=== PATIENT | male | born 1940 | race Caucasian/White ===

== ENCOUNTER 2019-02-13 14:55 | Outpatient (RCR) | payer MEDICARE, BC ==
[~2019-02-13 14:55] MED LIST: ASPIRIN 32325 MG/TAB PO; ATIVAN 0.50.5 MG/TAB PO; EPA FISH OIL1000 MG PO; MOTRIN 200200 MG/TAB PO; PLAVIX 75MG TAB75 MG PO; ZETIA 10MG TAB10 MG PO; ZOFRAN 4MG T4 MG/TAB PO
== END 2019-02-19 | disposition home or self-care (01) ==
LOC: COL.CR
DX: Z48.812 Encounter for surgical aftercare following surgery on the circulatory system (principal); I21.9 Acute myocardial infarction, unspecified; Z95.5 Presence of coronary angioplasty implant and graft

== ENCOUNTER 2019-04-21 15:08 | Outpatient (RCR) | payer MEDICARE, BC | END 2019-05-23 | disposition home or self-care (01) | LOC: COL.CR | DX: Z48.812 Encounter for surgical aftercare following surgery on the circulatory system (principal); Z95.5 Presence of coronary angioplasty implant and graft; I25.10 Atherosclerotic heart disease of native coronary artery without angina pectoris ==

== ENCOUNTER 2021-05-11 10:18 | Observation (INO) | payer MEDICARE, BC ==
[~2021-05-11] VITALS: Ht 172.7 cm; Wt 82.5 kg
[2021-05-11 11:09] LABS: BASO % 0.4 % (0.0-2.0); EOS # 0.2 K/mm3 (0.0-0.7); EOS % 2.8 % (0.0-4.0); GRAN # 4.3 K/mm3 (1.4-6.5); GRAN % 59.8 % (42.2-75.2); HEMATOCRIT 44.1 % (42.0-52.0); HEMOGLOBIN 14.4 g/dl (13.5-18.0); LYMPH % 27.8 % (20.0-51.0); MEAN CELL VOLUME 84 fl (80.0-100.0); MEAN CORPUSCULAR HEMOGLOBIN 28 pg (27-31); MEAN CORPUSCULAR HGB CONC 33 g/dl (33.0-37.0); MEAN PLATELET VOLUME 9.2 fl (7.4-10.4); MONO # 0.6 K/mm3 (0.1-0.6); MONO % 8.9 % (1.7-9.3); PLATELET COUNT 231 K/mm3 (130-400); RED BLOOD COUNT 5.23 M/mm3 (4.20-5.60); REDCELL DISTRIBUTION WIDTH-CV 13.2 % (11.5-14.5)
[2021-05-11 11:20] LABS: ALANINE AMINOTRANSFERASE 24 U/L (0-55); ALBUMIN 3.4 gm/dL (3.4-4.8); ALKALINE PHOSPHATASE 81 U/L (40-150); ANION GAP 10 mmol/L (7-16); AST,SGOT 27 U/L (5-34); BILIRUBIN,TOTAL 0.8 mg/dL (0.2-1.2); BLOOD UREA NITROGEN 18 mg/dL (8-26); CALCIUM 8.4 mg/dL (8.4-10.2); CARBON DIOXIDE 19 mmol/L (23-31); CHLORIDE 111 mmol/L (98-107); CREATININE, serum 0.83 mg/dL (0.72-1.25); GLUCOSE 149 mg/dL (70-99); POTASSIUM 3.7 mmol/L (3.5-4.5); SODIUM 140 mmol/L (136-145); TOTAL PROTEIN 6.2 gm/dL (6.2-8.1)
[2021-05-11 11:25] LABS: INR 1.2 (0.8-3.0)
[2021-05-11 11:27] LABS: TROPONIN-I < 0.010 ng/mL (0.00-0.033)
[2021-05-11] MEDS ORDERED: ASPIRIN E.C. 8181 MG PO (12:51)
[2021-05-11] MEDS ORDERED: CLARITIN 1010 MG/TAB PO (12:54)
[2021-05-11] MEDS ORDERED: TOPROL XL 25MG25 MG PO (12:55)
[2021-05-11] MEDS ORDERED: NITROSTAT0.4 MG/TAB SL (12:56)
[2021-05-11] MEDS ORDERED: ZESTRIL2.5 MG PO (12:57)
[2021-05-11 13:00] VITALS: BP 140/77; PULSE 71
--- NOTE | 2021-05-11 13:15 | NUR ---
arrived on unit at 1245, alert and oriented, assisted off cart and ambulated into bathroom, voided qs, then out of bathroom and into bed, full admission assessment completed, see interventions for further info, provided water per his request, denies needs at bedside
[2021-05-11] MEDS ORDERED: LIPITOR 40MG TA40 MG PO (14:04)
[2021-05-11 14:06] VITALS: TEMP 96.2
--- NOTE | 2021-05-11 14:28 | NUR ---
sitting up in bed eating lunch
[2021-05-11 14:57] VITALS: BP 135/74; PULSE 68
--- NOTE | 2021-05-11 14:58 | NUR ---
had lunch and tolerated well orthostatic BP obtained
[2021-05-11 16:06] VITALS: BP 122/65; PULSE 67; TEMP 97.8
--- NOTE | 2021-05-11 16:15 | NUR ---
appears to be sleeping, in bed with eyes closed, resp quiet and easy
--- NOTE | 2021-05-11 18:32 | NUR ---
bedside shift report given to RENEE Bond
--- NOTE | 2021-05-11 19:16 | NUR ---
RECEIVED CHANGE OF SHIFT REPORT FROM DAY SHIFT RN.
[2021-05-11 20:23] VITALS: BP 120/56; PULSE 59; TEMP 97.6
[2021-05-11 23:30] VITALS: BP 121/64; PULSE 60; TEMP 97.5
[2021-05-12 03:31] VITALS: BP 125/54; PULSE 52; TEMP 97.3
[2021-05-12 05:10] VITALS: BP 128/54; PULSE 49
[2021-05-12 07:12] LABS: MAGNESIUM 2.2 mg/dL (1.6-2.6); POTASSIUM 4.2 mmol/L (3.5-4.5)
--- NOTE | 2021-05-12 07:40 | NUR ---
CHANGE OF SHIFT REPORT GIVEN TO DAY SHIFT RNHANS.
[2021-05-12 08:39] VITALS: BP 132/65; PULSE 49; TEMP 97.7
--- NOTE | 2021-05-12 09:10 | NUR ---
Pt assessment complete. Pt sitting up in bed upon entry, he is A/O x4. His breathing is even and unlabored on RA. Pt denies SOB. Pt denies any dizziness, or any through the night. Denies any N/V. POC discussed with patient who verbalizes understanding. Will remain NPO until cardiology evaluates. No further needs, call light within reach.
[2021-05-12] MEDS ORDERED: ZESTRIL 5MG5 MG PO (10:31)
[2021-05-12] MEDS ORDERED: HYDROCORTISONE30 G3 TP (10:32)
--- NOTE | 2021-05-12 11:12 | NUR ---
SW met with patient at bedside to discuss discharge plan. Patient reports that he lives at home with his [place] ([phone]) on [address] Patient is fully independent with his activities of daily living and does not utilize any DME to assist with mobility and has no oxygen needs at home. PCP is Dr. Lorenzo and he utilizes [facility] for medications with no cost difficulty. Patient reports that he does have a DPO[facility] established and a copy of it is at home. Patient is planning on returning home with no concerns. Discharge plan: Home with spouse.
[2021-05-12 11:34] VITALS: BP 141/81; PULSE 74; TEMP 97.9
--- NOTE | 2021-05-12 12:13 | NUR ---
Discharge paperwork and instructions reviewed with patient. All questions answered at this time. IV's dc'd by PCT. Pt walked out of facility with a staff member at this time.
== END 2021-05-12 12:13 | disposition home or self-care (01) ==
LOC: COL.ER 10:18 → SURG 12:18
PROVIDERS: Physician Assistant; ADMIT Internal Medicine
DX: R55 Syncope and collapse (principal); R00.1 Bradycardia, unspecified; I25.10 Atherosclerotic heart disease of native coronary artery without angina pectoris; I65.23 Occlusion and stenosis of bilateral carotid arteries; I10 Essential (primary) hypertension; I25.2 Old myocardial infarction; L50.9 Urticaria, unspecified; I34.0 Nonrheumatic mitral (valve) insufficiency; I42.0 Dilated cardiomyopathy; E78.5 Hyperlipidemia, unspecified; I73.9 Peripheral vascular disease, unspecified; T45.526A Underdosing of antithrombotic drugs, initial encounter; T46.4X6A Underdosing of angiotensin-converting-enzyme inhibitors, initial encounter; Z91.128 Patient's intentional underdosing of medication regimen for other reason; Z95.1 Presence of aortocoronary bypass graft; Z79.899 Other long term (current) drug therapy; Z95.5 Presence of coronary angioplasty implant and graft; Z79.82 Long term (current) use of aspirin
CPT/HCPCS: G0378; J1650; J2405; J2550; J7030